=== PATIENT | female | born 1980 ===

== ENCOUNTER 2023-02-01 09:38 | Outpatient (REF) | payer MEDICAID, SELFPAY ==
[2023-02-01 14:17] LABS: MANUAL DIFF FLAG NO
[2023-02-01 14:19] LABS: Basophils Absolute Auto 0.1 X10*3/uL (0.0-0.2); Basophils Percent Auto 0.6 % (0-2); Eosinophils Absolute Auto 0.4 X10*3/uL (0.0-0.4); Eosinophils Percent Auto 4.5 % (0-4); Hematocrit 38.1 % (37.0-47.0); Hemoglobin 12.4 g/dl (12.0-16.0); Imm Gran Abs Auto 0.03 X10*3/uL (0.00-0.03); Imm Gran Pct Auto 0.3 % (0.0-0.4); Lymphocytes Percent Auto 23.6 % (20-40); Mean Corpuscular HGB Conc 32.5 g/dl (31.0-35.0); Mean Corpuscular Hemoglobin 32.5 pg (27.0-33.0); Mean Corpuscular Volume 99.7 fL (80.0-98.0); Mean Platelet Volume 10.5 fL (9.4-12.3); Monocytes Absolute Auto 0.6 X10*3/uL (0.1-1.2); Monocytes Percent Auto 7.4 % (2-11); Neutrophils Absolute Auto 5.5 x10*3/uL (2.0-8.3); Neutrophils Percent Auto 63.6 % (45-73); Platelet Count 370 X10*3/uL (160-400); Red Blood Count 3.82 X10*6/uL (4.20-5.50); White Blood Count 8.6 X10*3/uL (4.8-10.8)
[2023-02-01 14:39] LABS: Alanine Aminotransferase 10 U/L (0-31); Albumin Level 3.9 g/dL (3.5-5.0); Alkaline Phosphatase 69 U/L (39-117); Anion Gap 11 (12-20); Aspartate Amino Transferase 15 U/L (5-31); Bilirubin Direct 0.2 mg/dL (0.0-0.5); Bilirubin Total 0.3 mg/dL (0.0-1.0); Blood Urea Nitrogen 8 mg/dL (9-16); Calcium 9.4 mg/dL (8.4-10.2); Carbon Dioxide 23 mmol/L (22-29); Chloride 109 mmol/L (96-108); Cholesterol 141 mg/dL (<200); Estimated Glomerular Filt Rate > 60; Glucose Random 80 mg/dL (60-115); HDL Cholesterol 34 mg/dL (>40); LDL Cholesterol Calculated 96 mg/dL (<100); Potassium 3.8 mmol/L (3.3-5.1); Sodium 139 mmol/L (135-145); Total Protein 6.8 g/dL (6.5-8.0); Triglycerides 56 mg/dL (<150)
[2023-02-01 15:03] LABS: Vitamin B12 322 pg/mL (200-900)
== END 2023-02-01 09:39 | disposition home or self-care (01) ==
LOC: HO.CHCLDS 09:38
PROVIDERS: Visit Provider Pediatrics
DX: J45.20 Mild intermittent asthma, uncomplicated (principal); R63.4 Abnormal weight loss
CPT/HCPCS: 36415; 80048; 80061; 80076; 82607; 84443; 85025

== ENCOUNTER 2023-03-23 10:03 | Emergency (ER) | payer OTHER, MEDICAID, SELFPAY ==
--- NOTE | ~2023-03-23 | XR_ITS ---
EXAMINATION: XR HAND, RIGHT CLINICAL INFORMATION: Pain, injury. COMPARISON: None available. TECHNIQUE: PA, lateral, and oblique views of the right hand. FINDINGS: Bones, joints and soft tissues of the hand and wrist have a normal appearance. No evidence of arthritic deformity, fracture or subluxation. No focal soft tissue swelling or radiopaque foreign body. XR/XR hand RT 2V IMPRESSION: Normal right hand.
[2023-03-23 10:11] VITALS: BP 145/90; PULSE 84; RESP 20; TEMP 36.5; O2SAT 98; BMI 25.5
--- NOTE | 2023-03-23 11:12 | ED_ITS ---
HPI - General Adult General Chief complaint: Extremity Problem Stated complaint: R Hand Injury Work Related 03/23/23 Time Seen by Provider: 03/23/23 11:11 Source: patient Mode of arrival: ambulatory Limitations: no limitations History of Present Illness HPI narrative: Patient is a 43 year old assigned female at with no reported medical history presenting to the emergency department today with right thumb pain. 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 Patient denies any dizziness, lightheadedness, abdominal pain, nausea, vomiting, fever, chills, blurry vision, double vision, loss of vision, chest pain, difficulty breathing, shortness of breath, back pain, night sweats, pain with urination, increased urinary frequency, increased urinary urgency, blood in her urine or stool, syncope or a near syncopal episode, bowel incontinence, bladder incontinence, bowel retention, bladder retention, or any other complaints at this time. Onset (ago): minute(s) Location: right and upper extremity Radiation: non-radiation Severity: mild Severity scale (1-10): 3 Quality: aching and dull Pain Consistency: constant Relieving factors: none Exacerbating factors: none Associated symptoms: denies other symptoms Treatments prior to arrival: none Related Data Allergies Allergy/AdvReac Type Severity Reaction Status Date / Time No Known Allergies Allergy Verified 03/23/23 10:14 Review of Systems Constitutional: Constitutional: Reports no additional constitutional complaints, Denies chills, Denies fever(s) and Denies night sweats Eyes: Eyes: Reports no additional eye complaints, Denies blurry vision, Denies change in vision, Denies diplopia, Denies eye discharge, Denies loss of vision and Denies eye pain ENT: Denies dizziness Cardiovascular: Cardiovascular: Reports no additional cardiovascular complaints, Denies chest pain, Denies lightheadedness, Denies Loss of Consciousness and Denies dyspnea Respiratory: Respiratory: Reports no additional respiratory complaints and Denies dyspnea Gastrointestinal: Gastrointestinal: Reports no additional gastrointestinal complaints, Denies abdominal pain, Denies melena, Denies hematochezia, Denies change in bowel habits and Denies change in stool character Genitourinary: Genitourinary: Denies hematuria, Denies urinary frequency, Denies dysuria, Denies urinary incontinence, Denies urinary hesitancy and Denies urinary urgency Musculoskeletal: Musculoskeletal: Reports no additional musculoskeletal complaints, Denies numbness and Denies tingling Comments: right thumb pain Neurologic: Denies dizziness, Denies loss of vision, Denies numbness and Denies tingling Psychiatric: Psychiatric: Reports no additional psychiatric complaints Endocrine: Endocrine: Reports no additional endocrine complaints Hematologic/Lymphatic: Hematologic/Lymphatic: Reports no additional hematologic/lymphatic complaints Allergic/Immunologic: Allergic/Immunologic: Reports no additional allergic/immunologic complaints PMFSH Past Medical History Attestation statement: The following information was validated with the patient. Source: old records reviewed and nursing notes reviewed Social History Social History Advance Directives: No Advance Directives Information Provided: No Physical Exam ED Vital Signs: Vital Signs - 24 hr 03/23/23 10:11 Temperature 97.7 F Pulse Rate 84 Respiratory Rate 20 Blood Pressure 145/90 H Pulse Oximetry 98 Oxygen Delivery Method Room Air BMI result Body Mass Index 25.5 Const General: cooperative, no acute distress, alert and awake Nutritional Appearance: well nourished Orientation/consciousness: patient oriented x3 Limitations: no limitations HENMT Head: Yes normal to inspection and Yes atraumatic Ears: hearing grossly normal bilaterally and external ears normal General nose exam: Normal external nose present, no nasal discharge noted and no epistaxis Face and sinus: Yes normal facial exam, No abrasion and No laceration Mouth: Normal oral and palatal mucosa present, no drooling and no muffled voice Eyes General: appearance normal, both eyes and all related structures Periorbital: periorbital findings normal Eyelids: Yes eyelids normal Conjunctivae: conjunctivae normal Pupils: Equal, round and reactive pupils present EOM: EOMs intact bilaterally Neck Neck: Yes normal visual inspection, Yes full ROM and Yes no lymphadenopathy Chest Chest palpation & inspection: normal inspection of the chest Resp Effort & Inspection: normal respiratory effort and able to speak in complete sentences GI Inspection: Yes normal to inspection Neuro General: patient oriented x3 and moves all extremities Cranial nerves: Yes Equal, round and reactive pupils present Cognition (Neuro): normal cognition Motor exam (neuro): 5/5 motor strength present throughout Sensory Exam: Normal double simultaneous stimulation for sensation Coordination: [id number] test normal Extrem Other: unable to touch right thumb to right finger tips General: Yes normal to inspection and Yes capillary refill normal Psych Appearance: grossly normal Mental Status: mental status grossly normal Affect: normal affect Attitude: cooperative Thought process: Normal thought process present Thought content: Normal thought content present Insight: Good insight present (Psych) Procedures Orthopedic Splinting/Casting Injury #1: Side: right Upper Extremity Injury Location: hand and finger (thumb) Upper Extremity Immobilizer: thumb spica Medical Decision Making Medical Decision Making MDM Narrative: Patient is a 43 year old assigned female at with no reported medical history presenting to the emergency department today with right thumb and hand pain. Patient's physical exam showed that the patient is unable to touch her right thumb to her right finger tips. Patient's right hand x-ray showed no acute process. I explained my physical exam findings as well as all test results to the patient. I answered all questions asked by the patient. Patient's right thumb was placed in a thumb spica splint, without incident. Patient's PMS was intact prior to and after splint placement. I stressed the importance of the patient taking her medication as prescribed. I stressed the importance of the patient following up with her primary care provider and an orthopedic provider. I stressed the importance of the patient returning to the emergency department immediately if her symptoms were to worsen or if she were to develop any dizziness, shortness of breath, difficulty breathing, chest pain, blurry vision, loss of vision, nausea, vomiting, abdominal pain, fever, chills, back pain, or any other complaints. Patient verbalized agreement and understanding with this treatment plan and discharge. Differential Diagnosis Differential Diagnoses: The differential diagnosis associated with the presentation includes Right thumb sprain Right hand sprain Skier's thumb UCL of the thumb injury RCL of the thumb injury Independent Interpretation I performed an independent interpretation of an: Plain X-Ray Interpretation: My interpretation is in agreement with the radiologist's impression of this imaging study. EXAMINATION: XR HAND, RIGHT CLINICAL INFORMATION: Pain, injury. COMPARISON: None available. TECHNIQUE: PA, lateral, and oblique views of the right hand. FINDINGS: Bones, joints and soft tissues of the hand and wrist have a normal appearance. No evidence of arthritic deformity, fracture or subluxation. No focal soft tissue swelling or radiopaque foreign body. XR/XR hand RT 2V IMPRESSION: Normal right hand. Dictated By: Mian Tucker MD Signed By: Electronically signed by Mian Tucker MD 03/23/23 1926 Radiology Impression Discussion of test interpretation with radiology: I have reviewed the radiologist's reading. Discharge Plan Discharge Clinical Impression: Sprain of hand, thumb, right Patient Disposition: Home, Self-Care Instructions: Sprain (ED), Skier's Thumb (ED) Additional Instructions: Keep your splint on until you see the orthopedic provider. Follow up with your primary care provider and an orthopedic provider. Return to the emergency department immediately if your symptoms worsen or if you develop any dizziness, shortness of breath, difficulty breathing, chest pain, blurry vision, loss of vision, nausea, vomiting, abdominal pain, fever, chills, back pain, or any other complaints. Referrals: [facility] [place] [facility] [Provider Group] (Call to establish and follow up with an orthopedic provider.) [facility] [Provider Group] (Given this was a work place injury, call to establish and follow up with [facility].) Galina Farfan MD [Primary Care Provider] - Stand Alone Forms: Work/School Release Print Language: Zimbabwean
== END 2023-03-23 13:14 | disposition home or self-care (01) ==
PROVIDERS: Emergency Provider Emergency Medicine Emergency Medical Services; PCP Pediatrics
DX: S63.601A Unspecified sprain of right thumb, initial encounter (principal); M79.641 Pain in right hand; Y29.XXXA Contact with blunt object, undetermined intent, initial encounter; Y93.9 Activity, unspecified; Y92.9 Unspecified place or not applicable; Y99.0 Civilian activity done for income or pay
CPT/HCPCS: 73120; 99282; 99283

== ENCOUNTER 2023-03-26 10:42 | Outpatient (AMB) | payer OTHER, MEDICAID, SELFPAY ==
--- NOTE | 2023-03-26 10:44 | A.OFFVIS_ITS ---
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 Patient reports that she works as a [employer] and was caring for a patient when the patient rolled over on her hand causing her thumb to bend back. She was seen at [facility] ED same day where xrays were taken and placed in a wrist brace. Currently her pain comes with any movement, states at rest no pain. Her pain is located around her CMC and will radiate up into her forearm. States numbness and tingling in thumb. 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 She was seen at ED the same day where x-rays were performed and she was placed in a wrist brace. She currently she has pain and swelling at the CMC of her thumb which radiates up to her forearm. Her pain comes with any movement. She also c/o numbness and tingling in her thumb. She denies any popping s/p injury. 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 [facility] Social History (Updated 03/26/23 @ 10:51 by Lisette Villafuerte Xiomara) Patient Tobacco Use Status: Current everyday Tobacco user Current occupation: [employer], right hand dominant Review of Systems Const All systems reviewed & are unremarkable except as noted in HPI and below Physical Exam Vital Signs: BMI result Body Mass Index 25.5 Const General: cooperative, healthy appearing, comfortable, no acute distress, well developed and alert Orientation/consciousness: patient oriented x3 HEENT Head: Yes normal to inspection, Yes normocephalic and Yes atraumatic Eyes General: appearance normal, both eyes and all related structures Resp Effort & Inspection: normal respiratory effort and able to speak in complete sentences Cardio Rate: regular rate Peripheral pulses: Peripheral pulses 2+ throughout GI Palpation (GI): Soft to palpation Skin Lesions: no lesions Rashes: no rashes Neuro General: patient oriented x3 Extrem Other: Right thumb: Normal to inspection. She has significant tenderness along base of her thumb into the wrist. She has hypersensitivity to palpation over the distal radius into the forearm. No bony abnormality. I can bring her 2nd, 3rd, 4th, and 5th digit to a closed fist and extend digits fully. Sensation and pulses are present. Results Reviewed Results Reviewed: xrays of the right hand 03/23/23 of the right hand are negative for acute fractures or dislocations Assessment & Plan Assessment & Plan (1) Right wrist tendonitis: Code(s): M77.8 - Other enthesopathies, not elsewhere classified (2) Injury of triangular fibrocartilage complex (TFCC) of right wrist: Code(s): S69.81XA - Other specified injuries of right wrist, hand and finger(s), initial encounter Qualifiers: Encounter type: initial encounter Qualified Code(s): S69.81XA - Other specified injuries of right wrist, hand and finger(s), initial encounter Plan At this time, she is significantly guarded on exam making it difficult to perform any exam on her. I did send her a prescription of Tylenol and ibuprofen to her the pharmacy and I encouraged to pick this up right away so she can start taking this. She was also placed in a Velcro thumb spica wrist splint which she will wear for the next 2 weeks. She should also try to perform ROM exercises. She will return to work without the use of her right hand until I see her back. An STAT MRI arthrogram of the right wrist has been ordered for further evaluation. Orders: Orders MR wrist RT w con Today M77.8 - Other enthesopathies, not elsewhere classified, S69.81XA - Other specified injuries of right wrist, hand and finger(s), initial encounter Medications: New ibuprofen 800 mg PO Q8H PRN 90 tabs 3RF pain 30 days S52.209D - Unspecified fracture of shaft of unspecified ulna, subsequent encounter for closed fracture with routine healing acetaminophen 650 mg (2 x 325 mg) PO Q4-6H PRN 240 tabs 0RF fever or pain 30 days Patient Instructions: Scribed for Han Devlin PA-C, by William Elliott medical records clerk, on 03/26/2023 at 10:30 AM Han WARREN PA-C, have personally reviewed and agree with the information entered by the scribe. Coding Level of Care Code New Pt Level 3 (79876) Diagnoses Right wrist tendonitis M77.8 Injury of triangular fibrocartilage complex (TFCC) of right wrist, initial encounter S69.81XA Encounter type: initial encounter
[2023-03-26 10:52] VITALS: BMI 25.5
== END 2023-03-26 11:26 | disposition home or self-care (01) ==
PROVIDERS: PCP Pediatrics; Visit Provider Physician Assistant
DX: S69.81XA Other specified injuries of right wrist, hand and finger(s), initial encounter (principal); W51.XXXA Accidental striking against or bumped into by another person, initial encounter; Y99.0 Civilian activity done for income or pay; Z04.2 Encounter for examination and observation following work accident
CPT/HCPCS: 99203

== ENCOUNTER → 2023-03-26 10:42 | Outpatient (BNVA) | payer OTHER, MEDICAID, SELFPAY | PROVIDERS: PCP Pediatrics; Visit Provider Physician Assistant | DX: M77.8 Other enthesopathies, not elsewhere classified (principal); S69.81XA Other specified injuries of right wrist, hand and finger(s), initial encounter | CPT/HCPCS: 99202 ==

== ENCOUNTER 2023-04-24 10:34 | Outpatient (REF) | payer OTHER, SELFPAY ==
--- NOTE | ~2023-04-24 | MR_ITS ---
EXAMINATION: MR WRIST WITH CONTRAST, RIGHT CLINICAL INFORMATION: Right wrist injury, pain. COMPARISON: None available. TECHNIQUE: MRI of the wrist was performed following the intra-articular administration of a dilute gadolinium-containing solution (arthrogram) on a high-field scanner. FINDINGS: There is a full-thickness tear at the radial attachment of the triangular fibrocartilage complex with contrast extending into the distal radioulnar joint. The scapholunate and lunotriquetral ligaments appear intact. Mild degenerative changes of the triscaphoid articulation, at the dorsal junction of the trapezium and trapezoid and 2nd CMC joint, and a degenerative cyst within the proximal capitate. There is also a reactive cyst of the distal ulna at the fovea. No acute osseous abnormality. There is a 6 mm ganglion projecting distal to the volar aspect of the junction of the trapezium and trapezoid. The median nerve appears slightly enlarged and increased in signal immediately proximal to the carpal tunnel. Correlate clinically for symptoms of carpal tunnel syndrome. Flexor and extensor tendons appear intact. MR/MR wrist RT w con IMPRESSION: 1. Full-thickness tear at the radial attachment of the triangular fibrocartilage complex. 2. Mild degenerative changes as described. 3. The median nerve appears slightly enlarged and increased in signal immediately proximal to the carpal tunnel. Correlate clinically for symptoms of carpal tunnel syndrome.
--- NOTE | ~2023-04-24 | FL_ITS ---
RIGHT WRIST ARTHROGRAM INDICATIONS: Right wrist pain. Intra-articular gadolinium injection is needed prior to MRI. PROCEDURE: Risks and benefits and possible complications were discussed with the patient and the consent form was signed. The patient was placed prone on the fluoroscopy table. The right wrist was prepped and draped in normal sterile fashion. 1% buffered lidocaine was used for anesthesia. A 25-gauge hypodermic needle was used to access the radiocarpal joint. Intra-articular position of the needle within the radiocarpal joint was verified using 0.5 cc of Omnipaque 300. A total of 2 mL of gadolinium/saline (1:200) contrast mixture was then injected into the radiocarpal joint. The needle was then removed and a Band-Aid was applied to the injection site. The patient tolerated the procedure well and was sent for to MRI. There were no immediate complications. FL/FL arthrogram wrist RT IMPRESSION: Fluoroscopic right wrist arthrogram The procedure was performed by Christiano Wellington PA-C, and directly supervised by Dr. Flores.
[2023-04-26] MEDS: gadobutroL 2 ML VIAL IVPUSH (15:18)
== END 2023-04-24 10:35 | disposition home or self-care (01) ==
LOC: HO.XRAY 10:34
PROVIDERS: PCP Pediatrics; Visit Provider Physician Assistant
DX: S69.81XA Other specified injuries of right wrist, hand and finger(s), initial encounter (principal); M77.8 Other enthesopathies, not elsewhere classified
CPT/HCPCS: 25246; 73115; 73222; A9585

== ENCOUNTER → 2023-04-24 11:00 | Outpatient (BNV) | payer OTHER, SELFPAY | PROVIDERS: PCP Pediatrics; Visit Provider Radiology Diagnostic Radiology | DX: M25.531 Pain in right wrist (principal) | CPT/HCPCS: 25246; 73115 ==

== ENCOUNTER 2023-05-07 16:10 | Outpatient (REF) | payer SELFPAY ==
[2023-05-08 14:08] LABS: CT PCR NOT DETECTED (Not Detect.); NG PCR NOT DETECTED (Not Detect.)
[2023-05-09 13:12] LABS: BV Int Neg Control Negative (Negative); BV Int Pos Control Positive (Positive)
== END 2023-05-07 16:11 | disposition home or self-care (01) ==
LOC: HO.LNP 16:10
PROVIDERS: Emergency Medicine; Visit Provider Family Medicine
DX: Z20.2 Contact with and (suspected) exposure to infections with a predominantly sexual mode of transmission (principal)
CPT/HCPCS: 0353U; 87480; 87510; 87660

== ENCOUNTER 2023-05-11 11:28 | Outpatient (AMB) | payer OTHER, SELFPAY ==
[2023-05-11 11:31] VITALS: BMI 25.5
--- NOTE | 2023-05-11 11:31 | A.OFFVIS_ITS ---
Intake Vital Signs 05/11/23 11:31 Height 5 ft 1 in Weight 135 lb BMI 25.5 Intake Visit Reasons: OV-follow up right wrist MRI Intake Note: Zaina is a 43 year old Right handed female who presents for and MRI review of her Right wrist. Patient reports it is a little better, she wore the splint and states that it is restrictive and she has been doing ROM exercieses that have been helping along with warm compress and massage. Allergies No Known Allergies Allergy (Verified 05/11/23 11:34) HPI OV-follow up right wrist MRI HPI Details 43-year-old female who returns to the [facility] today for an MRI review of right wrist. She states she has mild improvement in her wrist. She is working with her exercises as well as warm compress and massage with benefits. She is wearing her splint as instructed however she states that it is restrictive. She has no other concerns today. 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 Review of Systems Const All systems reviewed & are unremarkable except as noted in HPI and below Physical Exam Vital Signs: BMI result Body Mass Index 25.5 Const General: cooperative, healthy appearing, comfortable, no acute distress, well developed and alert Orientation/consciousness: patient oriented x3 HEENT Head: Yes normal to inspection, Yes normocephalic and Yes atraumatic Eyes General: appearance normal, both eyes and all related structures Resp Effort & Inspection: normal respiratory effort and able to speak in complete sentences Cardio Rate: regular rate Peripheral pulses: Peripheral pulses 2+ throughout GI Palpation (GI): Soft to palpation Skin Lesions: no lesions Rashes: no rashes Neuro General: patient oriented x3 Extrem Other: Right thumb: Normal to inspection. She has significant tenderness along base of her thumb into the wrist, pain over the TFCC and pain with compression of the wrist. No bony abnormality. She can make a closed fist and extend digits fully. Sensation and pulses are present. Results Reviewed Results Reviewed: MR wrist RT w con IMPRESSION: 1. Full-thickness tear at the radial attachment of the triangular fibrocartilage complex. 2. Mild degenerative changes as described. 3. The median nerve appears slightly enlarged and increased in signal immediately proximal to the carpal tunnel. Correlate clinically for symptoms of carpal tunnel syndrome. Assessment & Plan Assessment & Plan (1) Right wrist tendonitis: Code(s): M77.8 - Other enthesopathies, not elsewhere classified (2) Injury of triangular fibrocartilage complex (TFCC) of right wrist: Code(s): S69.81XA - Other specified injuries of right wrist, hand and finger(s), initial encounter Qualifiers: Encounter type: initial encounter Qualified Code(s): S69.81XA - Other specified injuries of right wrist, hand and finger(s), initial encounter Plan MRI findings were discussed with the patient today. Given her continued limitations that she experiences from her injury I would like her to meet with Dr. Multani to discuss the MRI findings to evaluate if surgical intervention is warranted. She will return to work with no lifting, pushing, pulling or carrying with her right arm. She will see us back as planned. Patient Instructions: Scribed for Han Devlin PA-C, by William Elliott medical staff credentialing coordinator, on 05/11/2023 at 11:30 AM EMMA. Han Abdul PA-C, have personally reviewed and agree with the information entered by the scribe. Coding Level of Care Code Est Pt Level 3 (81092) Diagnoses Right wrist tendonitis M77.8 Injury of triangular fibrocartilage complex (TFCC) of right wrist, initial encounter S69.81XA Encounter type: initial encounter
== END 2023-05-11 12:09 | disposition home or self-care (01) ==
PROVIDERS: PCP Pediatrics; Visit Provider Physician Assistant
DX: M77.8 Other enthesopathies, not elsewhere classified (principal); S69.81XA Other specified injuries of right wrist, hand and finger(s), initial encounter
CPT/HCPCS: 99213

== ENCOUNTER → 2023-05-11 11:28 | Outpatient (BNVA) | payer OTHER, SELFPAY | PROVIDERS: PCP Pediatrics; Visit Provider Physician Assistant | DX: M77.8 Other enthesopathies, not elsewhere classified (principal); S69.81XA Other specified injuries of right wrist, hand and finger(s), initial encounter | CPT/HCPCS: 99212 ==

== ENCOUNTER 2023-08-22 15:23 | Outpatient (AMB) | payer OTHER, SELFPAY ==
[2023-08-22 15:31] VITALS: BMI 25.5
--- NOTE | 2023-08-22 15:31 | MHC.OFFVIS ---
Vital Signs 08/22/23 15:31 Height 5 ft 1 in Weight 135 lb BMI 25.5 Intake Visit Reasons: OV-Discuss MRI TFCC tear Intake Note: Zaina 43 yr old female presents today for her MRI review of her right hand. States her pain is worse. She is also now having pain in her left due to over use. Allergies No Known Allergies Allergy (Verified 08/22/23 15:32) HPI HPI OV-Discuss MRI TFCC tear: Details: Zaina Jensen is a 43 year old right hand dominant woman who returns for a review of a right wrist MRI for right wrist and hand pain. DOI: 03/2023. She reports while at work her right thumb bent backwards. She reports pain along the entire radial aspect of the right wrist and right thumb. Denies numbness or tingling. She has an MRI arthrogram done by Han Devlin PA-C, who referred her to me. 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 Review of Systems Const All systems reviewed & are unremarkable except as noted in HPI and below Physical Exam Vital Signs: BMI result Body Mass Index 25.5 Const General: cooperative, healthy appearing and no acute distress Orientation/consciousness: patient oriented x3 HEENT Head: Yes normocephalic and Yes atraumatic Eyes EOM: EOMs intact bilaterally Resp Effort & Inspection: normal respiratory effort and able to speak in complete sentences Cardio Jugular venous distension: no JVD Skin General skin exam: turgor normal Rashes: no rashes Neuro General: patient oriented x3 Extrem Other: Evaluation of Right Upper Extremity: Patient was alert oriented and in no acute distress She was somewhat anxious about me touching her right hand. The patient held her hand in a position of disuse, and explained that she had significant pain about the right thumb from about the MCP joint proximally to the radial aspect of the right wrist. With encouragement I can get her to bring her fingers into a fist and back into full extension. She was very resistant to move her right thumb at all. With encouragement I can get her to weakly demonstrate flexion and extension at the IP joint of the thumb She complained of pain with palpation about the MCP joint and with testing of the radial collateral and ulnar collateral ligaments. The radial and ulnar collateral ligaments appeared to both be stable on exam. I ended up using a 0-10 pain scale as pain on the radial aspect of the hand and wrist was nonfocal. She had 5/10 pain to the 1st dorsal compartment on the radial aspect of the wrist. She had 6/10 pain to light touch only of the skin over the thenar mass and explained that this was her area of maximal tenderness. Again this was only with light touch of the skin. Nontender over the index middle ring and small fingers. Nontender over the 2nd 3rd 4th and 5th metacarpals, though she did complain of ?pressure? She was completely nontender about the ulnocarpal joint. The DRUJ was nontender and was completely stable on exam. Radiographs: Three views of the right hand were reviewed by me today in clinic and showed no fractures or dislocations. MRI arthrogram: MRI of the right wrist, obtained on 04/24/2023: IMPRESSION: 1. Full-thickness tear at the radial attachment of the triangular fibrocartilage complex. 2. Mild degenerative changes as described. 3. The median nerve appears slightly enlarged and increased in signal immediately proximal to the carpal tunnel. Correlate clinically for symptoms of carpal tunnel syndrome. Dictated By: Kennedy Miller MD on 04/24/23 [id number] Assessment & Plan Assessment & Plan (1) Right wrist pain: Code(s): M25.531 - Pain in right wrist Category: Medical (2) Pain of right thumb: Code(s): M79.644 - Pain in right finger(s) Category: Medical (3) Hypersensitivity: Code(s): T78.40XA - Allergy, unspecified, initial encounter Category: Medical Plan Assessment and plan: 1. Right radial wrist pain 2. Right thumb pain 3. Hypersensitivity to light touch of the thumb and radial wrist. This is all related to a work-related injury as a [employer]ER in March of 2023. She has been unable to work since that time. Radiographs and MRI are negative for any fracture. There is a possible degenerative TFCC tear from the radial attachment, which is completely asymptomatic. MRI negative for ligamentous injury of the wrist itself other than as noted above. Please see the report for additional information as necessary. At this point I am more concerned about her disuse and hypersensitivity. I encouraged her to work on range of motion exercises and referring her for OT hand therapy. We will see her back in 1 month for reassessment. It is possible that she may have an underlying de Quervain tenosynovitis, and we can address treatment of that at that time as symptoms and exam hopefully become more focal.. Orders: Orders OT Evaluation and Treatment Today M25.531 - Pain in right wrist, M79.644 - Pain in right finger(s), T78.40XA - Allergy, unspecified, initial encounter Patient Instructions: Scribed by Mirian Ventura, medical officer psychiatry, for Dr. Venita Multani on 08/22/2023 at 3:38 pm, EST. Coding Level of Care Code New Pt Level 4 (91455) Diagnoses Right wrist pain M25.531 Pain of right thumb M79.644 Hypersensitivity T78.40XA
== END 2023-08-22 16:06 | disposition home or self-care (01) ==
LOC: HO.HOS 15:23
PROVIDERS: PCP Pediatrics; Visit Provider Orthopaedic Surgery
DX: M25.531 Pain in right wrist (principal); M79.644 Pain in right finger(s); T78.40XA Allergy, unspecified, initial encounter
CPT/HCPCS: 99203

== ENCOUNTER → 2023-08-22 15:23 | Outpatient (BNVA) | payer OTHER, SELFPAY | PROVIDERS: PCP Pediatrics; Visit Provider Orthopaedic Surgery | DX: M25.531 Pain in right wrist (principal); M79.644 Pain in right finger(s); T78.40XA Allergy, unspecified, initial encounter | CPT/HCPCS: 99202 ==

== ENCOUNTER 2023-09-10 08:30 | Outpatient (RCR) | payer OTHER, SELFPAY ==
--- NOTE | 2023-09-06 14:12 | MHC.OT.EP ---
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 when the LIGHT INDUSTRIAL who was assisting her did not perform the transfer correctly and the pt. rolled over onto her R hand/thumb. Pt has been out work since (DOI). She is wearing a thumb Spica (short wrist) orthoses given to her by the MD after d/charging her from a longer thumb Spica orthoses at her last MD appt. She has been referred to skilled OT therapy for increased functional use of her R hand/wrist Pt reports an MRI and X-ray in April : MRI showed tear of TFCC, A cyst, and median nerve involvement w/ possible DeQuervains Frequency and Duration: The patient will be seen Short Term Goals: Pt will be compliant w/ her HEP Pt will increase pain free wrist extension to 25 Pt will make a composite fist Pt will report using her R hand for showering tasks Hospice/Home Health Aide Goals: Pt will report a decrease of pain w/ AROM of her wrist tp1/10 Pt will oppose the distal tip of her R thumb to the base of her SF Pt will increase pain free wrist flexion to 50 Treatment Plan: Therapeutic Exercise Therapeutic Activity Home Exercise Program Splinting Neuro Re-ed Patient Education Desensitization/Sensory Re-ed Edema Control ADL Training Ultrasound NMES Iontophoresis Paraffin Fluidotherapy MHP Cold Packs Joint Mobilization Soft Tissue Mobilization Kinesiotaping Other (see comments) Pt is hypersensitive to pain Electronically Signed By: Samantha Pimentel OTR/L , Please Sign and return to therapist. Thank you once again for your referral.
--- NOTE | 2023-09-06 14:25 | MHC.OT.EP ---
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 when the LOCKSTITCH WAISTBAND SETTER who was assisting her did not perform the transfer correctly and the pt. rolled over onto her R hand/thumb. Pt has been out work since (DOI). She is wearing a thumb Spica (short wrist) orthoses given to her by the MD after d/charging her from a longer thumb Spica orthoses at her last MD appt. She has been referred to skilled OT therapy for increased functional use of her R hand/wrist Pt reports an MRI and X-ray in April : MRI showed tear of TFCC, A cyst, and median nerve involvement w/ possible DeQuervains Frequency and Duration: The patient will be seen 2xs a week for 8 weeks Short Term Goals: Pt will be compliant w/ her HEP Pt will increase pain free wrist extension to 25 Pt will make a composite fist Pt will report using her R hand for showering tasks Kiln Maintenance Goals: Pt will report a decrease of pain w/ AROM of her wrist tp1/10 Pt will oppose the distal tip of her R thumb to the base of her SF Pt will increase pain free wrist flexion to 50 Treatment Plan: Therapeutic Exercise Therapeutic Activity Home Exercise Program Splinting Neuro Re-ed Patient Education Desensitization/Sensory Re-ed Edema Control ADL Training Ultrasound NMES Iontophoresis Paraffin Fluidotherapy MHP Cold Packs Joint Mobilization Soft Tissue Mobilization Kinesiotaping Other (see comments) Pt is hypersensitive to pain Electronically Signed By: Samantha Pimentel OTR/L , Please Sign and return to therapist. Thank you once again for your referral.
--- NOTE | 2023-09-11 09:05 | MHC.OT.EP ---
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 when the HEALTH PLAN SPECIALIST who was assisting her did not perform the transfer correctly and the pt. rolled over onto her R hand/thumb. Pt has been out work since (DOI). She is wearing a thumb Spica (short wrist) orthoses given to her by the MD after d/charging her from a longer thumb Spica orthoses at her last MD appt. She has been referred to skilled OT therapy for increased functional use of her R hand/wrist Pt reports an MRI and X-ray in April : MRI showed tear of TFCC, A cyst, and median nerve involvement w/ possible DeQuervains Frequency and Duration: The patient will be seen 2 xs a week for 8 weeks Short Term Goals: Pt will be compliant w/ her HEP Pt will increase pain free wrist extension to 25 Pt will make a composite fist Pt will report using her R hand for showering tasks General Magistrate Goals: Pt will report a decrease of pain w/ AROM of her wrist tp1/10 Pt will oppose the distal tip of her R thumb to the base of her SF Pt will increase pain free wrist flexion to 50 Treatment Plan: Therapeutic Exercise Therapeutic Activity Home Exercise Program Splinting Neuro Re-ed Patient Education Desensitization/Sensory Re-ed Edema Control ADL Training Ultrasound NMES Iontophoresis Paraffin Fluidotherapy MHP Cold Packs Joint Mobilization Soft Tissue Mobilization Kinesiotaping Other (see comments) Pt is hypersensitive to pain Electronically Signed By: Samantha Pimentel OTR/L , Please Sign and return to therapist. Thank you once again for your referral.
--- NOTE | 2023-09-20 09:37 | MHC.OT.DC ---
[address] [phone] F: [phone] Occupational Therapy Discharge Note Patient Name: Zaina Jensen Provider: Venita Multani Diagnosis: R wrist pain , pain of R thumb Date of Surgery: Date of Evaluation: 09/06/23 Date of Discharge: Treatments to Date: 2 Cancellations to Date: No Shows to Date: 3 Discharge Status: Discharge Summary: Pt had 3 consecutive No shows to therapy. She had IE, and 1 tx which she attended and reported an increase of pain from AROM. She was unable to tolerate therapy. Electronically Signed By: Samantha Pimentel OTR/L , Reviewed/agree with student documentation: N/A Therapist: Please Sign and return to therapist, thank you for your referral.
== END 2023-09-21 15:00 | disposition home or self-care (01) ==
LOC: HO.OT 08:30
PROVIDERS: PCP Pediatrics; Visit Provider Orthopaedic Surgery
DX: M79.644 Pain in right finger(s) (principal); M25.531 Pain in right wrist; T78.40XD Allergy, unspecified, subsequent encounter
CPT/HCPCS: 97110; 97140; 97166; 97535

== ENCOUNTER 2023-09-12 09:07 | Emergency (ER) | payer OTHER, MEDICAID, SELFPAY ==
[2023-09-12 09:10] VITALS: BP 135/92; PULSE 86; RESP 16; TEMP 36.6; O2SAT 100; BMI 26.3
--- NOTE | 2023-09-12 09:49 | ED.EXTPRO ---
HPI - Extremity Problem General Chief complaint: Extremity Problem Stated complaint: wrist pain Time Seen by Provider: 09/12/23 09:31 History of Present Illness ED Provider: Galo Chapa PA-C HPI Narrative: 43 yo female pmh of right wrist tendonitis, injury of TFCC of right wrist presents with increasing pain to right hand/wrist status post work injury in March. 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 She reports she began PT last week but the pain was too much . She then reports she had to see someone from [facility] to evaluate her ROM which exacerbated the pain. Patient states she experiences tingling in her hand that comes and goes and sometimes radiates to her wrist She reports anxiety and insomnia because she is fearful of rolling on her wrist in her sleep. Patient was told to wear her brace and keep it on by PT and she is wearing it to the right wrist at time of examination. States she does not want to take it off as she is in too much pain. Denies numbness, weakness, fever, chills, chest pain, SOB. Patient states she is right hand dominant. Related Data Previous Rx's ?Medication ?Instructions ?Recorded acetaminophen 325 mg tablet 650 mg (2 x 325 mg) PO Q4-6H PRN 03/26/23 fever or pain 30 days #240 tabs ibuprofen 800 mg tablet 800 mg PO Q8H PRN pain 30 days #90 03/26/23 tabs ketorolac 10 mg tablet 10 mg PO TID PRN pain 5 days #15 09/12/23 tabs Allergies Allergy/AdvReac Type Severity Reaction Status Date / Time No Known Allergies Allergy Verified 09/12/23 09:13 Review of Systems Review of Systems: Yes all other systems are reviewed and are negative PMFSH Past Medical History Attestation statement: The following information was validated with the patient. 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 Appearance: Alert.? Oriented X3.? No acute distress.? Head: Normocephalic, atraumatic, no step-offs or deformities Neck: Normal inspection.? Neck supple.? CVS: Normal heart rate and rhythm.? Pulses normal.? Respiratory: No respiratory distress.? Breath sounds normal.? Abdomen: Soft and nontender.? Skin: Skin warm and dry.? Normal skin color.? Normal skin turgor.? Extremities: Removed brace to right wrist. Patient refusing to move wrist secondary to pain. Radial, ulnar, brachial pulses 2+ equal and symmetric bilaterally. No wrist drop b/l. Normal sensaiton distally Back: No midline tenderness, no C-spine tenderness, full range of motion, no CVA tenderness bilaterally Neuro: Oriented X 3.? No motor deficit.? No sensory deficit. CN 2-12 intact Course Reevaluation(s) Reevaluation #1: Patient will be given Toradol for pain she is supposed to see the specialist on the 12th of this month. Advised her to follow up with them. Educated patient on diagnosis and treatment plan, answered all question, patient verbalizes understanding. At this time patient will be discharged home, advised to return with new or worsening symptoms. Educated on worrisome signs and symptoms and when to return. At this time I feel comfortable discharge home. Time: 10:33 Medical Decision Making Medical Decision Making [facility] Narrative: 0945 43 yo female pmh right wrist tendonitis and injury to TFCC of right wrist presents for pain management status post work injury to her right wrist in March. Has seen orthopedic surgeon and PT. PE: Extremities: Removed brace to right wrist. Patient refusing to move wrist secondary to pain. Radial, ulnar, brachial pulses 2+ equal and symmetric bilaterally. Differential: Pain exacerbation from TFCC injury to right wrist. Unlikely threat to limb, fracture or dislocation, compartment syndrome, necrotizing infection, nerve injury, arterial or venous occlusion Plan: Pain control Differential Diagnosis Differential Diagnoses: The differential diagnosis associated with the presentation includes Differential: Pain exacerbation from TFCC injury to right wrist. Unlikely threat to limb, fracture or dislocation, compartment syndrome, necrotizing infection, nerve injury, arterial or venous occlusion Admission/Observation Consideration of admission/observation: Escalation of care including admission/observation considered (Unlikely) Independent Interpretation Interpretation: Reviewed wrist MRI from 04/24/2023 and wrist arthrogram on 04/24/2023. She also had an x-ray of the right hand on 03/23/2023 that was also reviewed Radiology Impression Discussion of test interpretation with radiology: I have reviewed the radiologist's reading. (from previous imaging as stated above ) External Record Review External record reviewed: Inpatient record, Office record, Outpatient record, Prior outpatient labs, Prior outpatient radiology, Primary care record and Outside ED record Prescription Management I considered prescription management with: Pain Medication (toradol ) Chronic Conditions Patient?s care impacted by: Other (R wrist pain ) Critical Care Time Critical Care Time Critical Care Time: Yes Total Critical Care Time: 35 Attestation: Insert critical care Discharge Plan Discharge Clinical Impression: Right wrist tendonitis Patient Disposition: Home, Self-Care Additional Instructions: Take your medications as prescribed. If you were prescribed antibiotics today, it is important that you take your medication to their entirety, do not skip any doses, do not finish them early. Follow-up with your primary care provider this week. Return to the emergency department with new or worsening symptoms. Such as fevers, chills, chest pain, shortness of breath, nausea, vomiting, dizziness, headache, vision changes, lethargy In case of emergency call 911 Toradol has been sent to your pharmacy, you tolerated this well in the department. Please take this as prescribed do not take this with ibuprofen, or other NSAIDs, do not mix this with alcohol. Side effects of this medication including increased risk for bleeding and possible kidney injury. Prescriptions: New ketorolac 10 mg tablet 10 mg PO TID PRN (Reason: pain) 5 Days Qty: 15 0RF No Action ibuprofen 800 mg tablet 800 mg PO Q8H PRN (Reason: pain) 30 Days Qty: 90 3RF acetaminophen 325 mg tablet 650 mg PO Q4-6H PRN (Reason: fever or pain) 30 Days Qty: 240 0RF Referrals: Galina Farfan MD [Primary Care Provider] - 2 days Stand Alone Forms: Work/School Release Print Language: Lithuanian
[2023-09-12] MEDS: Ketorolac Tromethamine 30 MG/ML VIAL IM (10:52)
[2023-09-12 10:57] VITALS: BP 135/92; PULSE 86; RESP 16; TEMP 36.6; O2SAT 100
== END 2023-09-12 10:58 | disposition home or self-care (01) ==
PROVIDERS: Emergency Provider Emergency Medicine; PCP Pediatrics
DX: M25.531 Pain in right wrist (principal); M77.8 Other enthesopathies, not elsewhere classified
CPT/HCPCS: 96372; 99283; 99284; J1885

== ENCOUNTER 2023-09-19 12:35 | Outpatient (AMB) | payer OTHER, SELFPAY ==
--- NOTE | 2023-09-19 12:55 | A.OFFVIS_ITS ---
Vital Signs 09/19/23 13:03 Height 5 ft 1 in Weight 139 lb BMI 26.3 Handedness Right Intake Visit Reasons: OV - right radial wrist pain Intake Note: Zaina is a 43 year old right hand dominant female who presents today for a follow up of Right TFCC tear, s/p OT. Patient states she hasn't seen improvements with OT she states there a was a hand surgeon there that moved her hand in way that made her pain so much worse. 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 I then had to convince her to not grasp & support her right wrist with her left hand As she had told me that a male orthopedic surgeon whom she had seen I believe as part of an insurance evaluation reportedly forced her hand through painful range of motion, I was careful to sit back and verbally retail performance coach her through attempted ranges of motion. With significant encouragement, and without touching her hand, I had her actively bring all of her fingers closed to a fist and back into full extension. She did this about 7 times, taking probably more than 15 minutes to do so. On the 7th iteration she still needed significant encouragement while also slowly bring her fingers closed to a fist and then needing encouragement again to fully extend her fingers, all while crying. She did not have stiffness in her fingers. I tried to get her to show me some wrist pronation and supination, but the most she could demonstrate was ~10 degrees of wrist pronation & 10 degrees of supination while crying. At the beginning of the appointment, while she still had her wrist splint on, I recall her using her right hand with a fair amount of ease as she handled her cell phone. She refused to flex or extend her wrist today. Her hesitation and resistance to try and move her hand or wrist appeared to be primarily be limited by fear & apprehension. She did talk about having pain over the dorsal aspect of her wrist and forearm when she was working on finger range of motion. When asked to localize where she had the most pain with 1 fingertip, she placed her index finger on the radial aspect of her right wrist, over the radial styloid. When asked to demonstrate ulnar deviation, she was unable to do so due to pain. It is difficult to tell if she has a positive Flory test today due to how limited our exam was today, and appeared to be limited by fear and effort. She has no swelling about the wrist or hand. She reported that she had some numbness and tingling in her fingertips. No intrinsic or thenar wasting. MRI arthrogram: IMPRESSION: 1. Full-thickness tear at the radial attachment of the triangular fibrocartilage complex. 2. Mild degenerative changes as described. 3. The median nerve appears slightly enlarged and increased in signal immediately proximal to the carpal tunnel. Correlate clinically for symptoms of carpal tunnel syndrome. Dictated By: Kennedy Miller MD 04/24/23 Psych Appearance: grossly normal Affect: normal affect Attitude: cooperative Office Procedures Fracture Care Details: No fracture, manual therapy for greater than 30 minutes 90227 x 2 Fracture Billing Code: Fracture Billing Code Assessment & Plan Assessment & Plan (1) Right wrist pain: Code(s): M25.531 - Pain in right wrist Category: Medical (2) Pain of right thumb: Code(s): M79.644 - Pain in right finger(s) Category: Medical (3) Hypersensitivity: Code(s): T78.40XA - Allergy, unspecified, initial encounter Category: Medical Plan Assessment and plan: 1. Right radial wrist pain This was the most significant finding on her exam from 08/22/2023, and where she placed her finger today when asked to identify the place that hurts her the most. Perhaps a de Quervain tenosynovitis, though it is impossible to tell on today's very limited exam 2. Apprehension, and perhaps fear of pain, when asked to bring even her fingertips through gentle range of motion, and her wrist through prono- supination, none of which was limited by the Velcro wrist splint that she was wearing. Patient reliance on wearing a Velcro thumb spica splint at all times, and when asked to remove it then using her opposite hand to grasp around her right wrist and support until reminded by me that nothing was actually broken or in need of such support, and being asked by me to stop doing so. 3. Hypersensitivity to light touch of the thumb and radial wrist. 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 She has reported that she has been unable to work since that time. 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 The DRUJ was found to be stable on previous exam. MRI negative for ligamentous injury of the wrist itself other than as noted above. No increased signal seen about the 1st dorsal compartment tendons. Please see the report for additional information as necessary. Her pain & hypersensitivity seems to be primarily related to disuse, and she had no stiffness today on exam Her ROM appeared to be limited by fear & pain and perhaps effort today It is possible she may have De Quervain's Tenosynovitis but it was too difficult to tell on exam today She became tearful when working on ROM exercises today in clinic, and we worked on ROM exercises for >30 minutes today with me verbally coaching her through making a fist and extending fingers, trying to get her to demonstrate some pronation and supination of the wrist, etc. as noted in the exam. I recommend she discontinue her wrist splint at this time She has been seen by OT twice, noting that she had a family emergency and other reasons to miss her last few appointments. She said that she is scheduled to see OT tomorrow. She says that they only gave her a few exercises to work on finger range of motion. I explained to her that it took us more than 15 minutes to get her through about 7 episodes of making a fist and extending her digits today in clinic. I recommended that she practice these exercises for a few minutes every hour, so that her time with the occupational therapist can be better spent. She will continue to work on ROM and desensitization with OT hand therapy I explained that she should work on ROM exercises including finger range of motion, wrist prono-supination, wrist flexion extension, at home, 20x daily, as it appears that most of her limitations right now are self-imposed. I spent a long time discussing the importance of performing ROM exercises at home. Her resuming more normal generalized range of motion will then allow either me or another hand surgeon to better evaluate her to see if she might have a particular problem that might benefit from perhaps a steroid injection or other intervention. Her current limitations in active attempts at range of motion do not allow for this to happen. I also told her that she was free to seek a second opinion if she desires She will follow up in 4-6 weeks for a ROM check If she does not show significant improvement in being able to better actively participate in the examination, or actively participate in OT hand therapy, I may recommend that she seek another opinion. Please note that greater than 60 minutes was spent with this patient going over the history, evaluating the patient, MRI and radiographs, formulating possible treatment options, discussing them with the patient, and documenting the visit. Scribed for Venita Multani MD by Zach Ramirez, medical chemist, on 09/19/23 at 1:35 PM, EST. Coding Level of Care Code Est Pt Level 4 (23668) Diagnoses Right wrist pain M25.531 Pain of right thumb M79.644 Hypersensitivity T78.40XA CPT Codes Fracture Care - Fracture Billing Code: Fracture Billing Code ([id number])
[2023-09-19 13:03] VITALS: BMI 26.3
== END 2023-09-19 13:59 | disposition home or self-care (01) ==
PROVIDERS: PCP Pediatrics; Visit Provider Orthopaedic Surgery
DX: M25.531 Pain in right wrist (principal); M79.644 Pain in right finger(s); T78.40XA Allergy, unspecified, initial encounter
CPT/HCPCS: 97140; 99215

== ENCOUNTER → 2023-09-19 12:35 | Outpatient (BNVA) | payer OTHER, SELFPAY | PROVIDERS: PCP Pediatrics; Visit Provider Orthopaedic Surgery | DX: M25.531 Pain in right wrist (principal); M79.644 Pain in right finger(s); T78.40XA Allergy, unspecified, initial encounter | CPT/HCPCS: 97140; 99212 ==

== ENCOUNTER 2023-10-05 10:41 | Outpatient (REF) | payer MEDICAID, SELFPAY ==
[2023-10-05 12:08] LABS: Syphilis Screen Nonreactive (Nonreactive)
[2023-10-05 15:48] LABS: HIV AB/AG Nonreactive (Nonreactive); HIV Num 1 0.05 S/CO (0.00-0.99); ~HepC Num1 0.07 S/CO (0.00-0.79); ~Hepatitis C Antibody Nonreactive (Nonreactive)
[2023-10-05 16:55] LABS: CT PCR NOT DETECTED (Not Detect.); NG PCR NOT DETECTED (Not Detect.)
== END 2023-10-05 10:42 | disposition home or self-care (01) ==
LOC: HO.HHCL 10:41
PROVIDERS: Visit Provider Family Medicine
DX: Z20.2 Contact with and (suspected) exposure to infections with a predominantly sexual mode of transmission (principal)
CPT/HCPCS: 36415; 86780; 86803; 87389; 87491; 87591

== ENCOUNTER 2023-10-05 13:57 | Outpatient (REF) | payer OTHER, SELFPAY | END 2023-10-05 13:58 | disposition home or self-care (01) | LOC: HO.LNP 13:57 | PROVIDERS: Visit Provider Family Medicine | DX: Z13.89 Encounter for screening for other disorder (principal) ==

== ENCOUNTER 2023-10-24 13:02 | Outpatient (RCR) | payer OTHER, MEDICAID, SELFPAY ==
--- NOTE | 2023-10-24 14:27 | MHC.OT.EP ---
[address] [phone] Occupational Therapy Plan of Care Patient Name: Zaina Wade Date of Evaluation: 10/24/23 Diagnosis: R WRIST AND THUMB PAIN Pain Location: R RADIAL WRIST, 1DI 4-5/10 AT REST 9/10 WITH HOLDING ITEMS Pain Score: 4-9/10 Pain Scale Used: Numeric (0 - 10) Aggravating Factors: CARRYING, LIFTING ITEMS IN R HAND Alleviating Factors: PAIN MEDICATION, HEAT Assessment: MS WADE REPORTS A R WRIST INJURY 8 MONTHS AGO. SHE C/O PAIN IN THE RADIAL ASPECT OF HER DOMINANT R WRIST. DIFFICULTIES REPORTED WITH ADLs AND IADLs, INCLUDING BATHING AND DRESSING SELF. USING COMPENSATORY STRATEGIES TO UTILIZE L HAND, MOSTLY AVOIDING R HAND USE. SHE RETURNS TO OT WITH GOAL TO HOLD ONTO/ CARRY ITEMS. AN 89% LIMITATION IS REPORTED PER THE QUICK DASH ASSESSMENT. WILL CONT SKILLED OT TO ADDRESS ROM, DESENSITIZATION, ENCOURAGE FUNCTIONAL USE/ ADLs, STRENGTH, AND COORDINATION. 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 Thank you once again for your referral.
--- NOTE | 2023-10-29 11:01 | MHC.OT.DC ---
[address] [phone] F: [phone] Occupational Therapy Discharge Note Patient Name: Zaina Wade Provider: Venita Multani Diagnosis: R WRIST AND THUMB PAIN Date of Evaluation: 10/24/23 Date of Discharge: 10/29/23 Treatments to Date: 1 Cancellations to Date: 0 No Shows to Date: 2 Discharge Status: Visit Non-compliance Discharge Summary: MS WADE PRESENTED TO OT FOR HER INITIAL EVAL. SHE REPORTED AN 89% LIMITATION PER THE QUICK DASH ASSESSMENT WITH A GOAL TO FUNCTIONALLY USE HER DOMINANT HAND. UNFORTUNATELY, AFTER HER INITAL VISIT SHE DID NOT RETURN TO OT FOR FOLLOW UP SESSIONS. PER THE CORE ATTENDANCE POLICY, Pt WILL BE DISCHARGED DUE TO VISIT NON COMPLIANCE. * OF NOTE, THIS IS HER SECOND TIME BEING DISCHARGED FROM CORE THERAPY DUE TO NON COMPLIANCE/ NO SHOWS. Electronically Signed By: RAMON LINN OTR/L Reviewed/agree with student documentation: N/A Therapist: Please Sign and return to therapist, thank you for your referral.
== END 2023-10-29 11:00 | disposition home or self-care (01) ==
LOC: HO.OT 13:02
PROVIDERS: PCP Pediatrics; Visit Provider Orthopaedic Surgery
DX: M25.531 Pain in right wrist (principal); M79.644 Pain in right finger(s); T78.40XA Allergy, unspecified, initial encounter
CPT/HCPCS: 97033; 97167

== ENCOUNTER 2024-01-02 08:40 | Outpatient (AMB) | payer OTHER, MEDICAID, SELFPAY ==
--- NOTE | 2024-01-02 08:40 | A.OFFVIS_ITS ---
Vital Signs 01/02/24 08:41 Height 5 ft 1 in Weight 139 lb BMI 26.3 Intake Visit Reasons: OV- Right wrist pain, RT TFCC tear, DOI 03/23/23 Intake Note: Zaina is a 43 year old right hand dominant female who presents today for a ROM check of right TFCC tear, DOI 03/23/23, that occurred at work. Patient reports she has not returned to work. She reports her employer stated she needs to be able to lift over 50 pounds. Patient expressed she is unable to do some regular daily activities like combing her hair or putting her hair up. She states her children have been helping her. She also shares she is unable to zip or buckle clothing. She continues to go to OT and wear a comfort cool brace. Allergies No Known Allergies Allergy (Verified 01/02/24 08:41) HPI HPI OV- Right wrist pain, RT TFCC tear, DOI 03/23/23: Details: Zaina Jensen is a 43 year old right hand dominant woman who returns for follow- up of her right radial wrist pain. DOI: 03/2023. Today her chief complaint is of pain over the dorsal aspect of her right hand demonstrating this over the dorsal aspect of the 4th metacarpal. She denies numbness and tingling. She says that she has been going to OT hand therapy, and it looks like she has been to 3 sessions since her last visit. She says that she can not do anything with her right hand and has to have her children fix her hair and help with things like zippers. 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 She was 1st seen by Rocio on 03/26/2023 and was sent for an MRI. She was seen back with Han on 05/11/2023 with the MRI findings, and was scheduled with an appointment to see me to review the MRI and evaluate the patient. She did not see me until 08/22/2023. At that time the MRI was reviewed and she was found to have right radial sided wrist and thumb pain but with hypersensitivity to even light touch of the skin. She was referred to OT hand therapy. She did not have a symptomatic TFCC tear but I was concerned about possible de Quervain tenosynovitis at that time. She was seen back again by me on 09/19/2023. At that time she was found to not be participating well with the exam and indeed took more than 15 minutes to demonstrate that she can actually make a fist and extend her finger 7 times, which I allowed her to do without touching her. Again referred her to OT as she had not been participating as we requested. After that I had several notes from OT where she fail to show and was discontinued from OT. We consequently reordered several times and again she would sharp to perhaps 1 appointment and then no-show. I made sure to put in the chart that we were not keeping her from working and had no restrictions on her with regards to working. She has had multiple courses of OT hand therapy ordered and has been very non- compliant overall with attending OT hand therapy sessions over the last several months. She states she has been attending OT recently and continues wearing a comfort cool brace. She says she is frustrated by her inability to work, and she is accustomed to a certain lifestyle and higher income , and it has been difficult to be out of work for so long. She denies supervisor receiving and processing's comp pay over the last few months, and says she has recently applied for financial aide. 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 She has been out of work since her injury and says her employer requires her to be able to lift 50lbs before she can return to work. She does say she tried to return and was told she could not due to her current restrictions. Of note her nails appear to have been done sometime recently. 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 As she had told me on a previous visit that a male orthopedic surgeon whom she had seen I believe as part of an insurance evaluation reportedly forced her hand through painful range of motion, I was careful to sit back and verbally track coach her through attempted ranges of motion. Median, Ulnar, Radial nerves motor and sensory intact and sensation is normal to the tips of all digits No thenar or intrinsic wasting Good APB muscle belly firing and good finger cross With encouragement, she is able to make a fist and extend all her digits Full & symmetrical wrist pronosupination Full & symmetrical wrist flexion & extension, with encouragement She has no swelling or erythema about the wrist or hand. She demonstrates today that her pain is centered over the 4th metacarpal over the dorsal aspect of her hand. She says she has more pain in this area when she makes a fist or supinates. She did not mention any pain on the radial side of her wrist or hand today.. Radiographs: 3 views of the right wrist from 03/23/23 show no fractures, dislocations, or arthritic changes. MRI arthrogram: IMPRESSION: 1. Full-thickness tear at the radial attachment of the triangular fibrocartilage complex. 2. Mild degenerative changes as described. 3. The median nerve appears slightly enlarged and increased in signal immediately proximal to the carpal tunnel. Correlate clinically for symptoms of carpal tunnel syndrome. Dictated By: Kennedy Miller MD 04/24/23 Psych Appearance: grossly normal Affect: normal affect Attitude: cooperative Assessment & Plan Assessment & Plan (1) Right hand pain: Code(s): M79.641 - Pain in right hand Category: Medical (2) Right wrist pain: Code(s): M25.531 - Pain in right wrist Category: Medical (3) Pain of right thumb: Code(s): M79.644 - Pain in right finger(s) Category: Medical (4) Hypersensitivity: Code(s): T78.40XA - Allergy, unspecified, initial encounter Category: Medical Plan Assessment and plan: 1. Right dorsal ulnar hand pain This is a new complaint today. No swelling, good range of motion. 2. Right radial wrist pain Area of previous complaint of pain. No complaints of right radial wrist pain today. Instead her new localization of discomfort appears to be centered over the dorsal aspect of the 4th metacarpal. This is a new location of pain that has not been mentioned previously. 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 She has reported that she has been unable to work since that time. 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 The DRUJ was found to be stable on previous exam. MRI negative for ligamentous injury of the wrist itself other than as noted above. No increased signal seen about the 1st dorsal compartment tendons. Please see the report for additional information as necessary. Her pain & hypersensitivity seems to be primarily related to disuse, and she had no stiffness today on exam As best we can tell, she has attended perhaps 7-8 OT hand therapy appointments since I began seeing her. She has no showed multiple appointments and has been discharged due to non-compliance multiple times. She has also no-showed office appointments since her last appointment on 09/19/23. I explained to her that it took us more than 15 minutes to get her through about 7 episodes of making a fist and extending her digits at last visit in clinic. I recommended that she practice these exercises for a few minutes every hour, so that her time with the occupational therapist can be better spent. Today her range of motion is improved in all areas. I spoke with her Occupational therapist, Filomena, concerning the patient and her compliance. She says that the patient has repeatedly no-showed appointments and has been discharged from therapy 4 times due to non-compliance. She says when the patient does show up that she has not been actively participating in her care or sessions, as would be expected of her. She says that she still can not work because she can not lift 50 lb and her work requires her to lift 50 lb. I did explain that if she can not lift 50 lb and the job requires her to lift 50 lb, then she might need to find a different kind of work. It has been more than 9 months since she reported a work-related injury in March of 2023 when a patient reportedly rolled onto her hand. Again I 1st saw her in August of 2023, and saw her again in September of 2023. It was evident that her participation in the exam was significantly affected by her lack of effort rather than underlying pathology. With her repeated no-shows of appointments at our hand surgery office and also with repeated no shows at her occupational therapy appointments, even after new consults were placed to allow her to try again, I made the point of noting that we in our office were not keeping her from working and placed no restrictions on her ability to work. As for quite a while she was reportedly still collecting workmen's compensation benefits, but not participating in her care and not showing up for appointments, her behavior was most consistent with malingering. I did talk with her about this during this visit and explained that I believe that she was not being truthful about her abilities and with her participation in her examinations in our office. At this time there is no medical reason I can see to keep her out of work and she was given a note saying she can return to work, without restrictions and full ability to participate in all activities. I did offer two choices for her. She could either seek a 2nd opinion from another hand surgeon and we would be happy to forward her records to that provider, or she could try another 4-6 weeks if needed of hand therapy to strengthen her hand and do whatever she thought she might need to do to make her feel more optimistic about returning to the work force. I did explain clearly that we did not place any restrictions on her with regards to work and were not keeping her out of work, but that she could use the hand therapy to improve her confidence in going back to work if she desired. She said that she wanted to go back to hand therapy. Again we did make a call to the occupational therapists and did understand that even when she had made her appointments this past summer she typically did not participate well with the exercises during her visit. I did place another OT referral for her to attend 2x weekly for the next 6 weeks, at the discretion of the hand therapists. She does not need a follow up appointment with us, and may follow up prn Please note that greater than 50 minutes was spent with this patient going over the history, evaluating the patient and radiographs, formulating possible treatment options, discussing them with the patient, and documenting the visit. Scribed for Venita Multani MD by Zach Ramirez, medical case worker, on 01/02/24 at 9:15 AM, EST. Coding Level of Care Code Est Pt Level 5 (18190) Diagnoses Right hand pain M79.641 Right wrist pain M25.531 Pain of right thumb M79.644 Hypersensitivity T78.40XA
[2024-01-02 08:41] VITALS: BMI 26.3
== END 2024-01-02 09:32 | disposition home or self-care (01) ==
PROVIDERS: PCP Pediatrics; Visit Provider Orthopaedic Surgery
DX: M79.641 Pain in right hand (principal); M25.531 Pain in right wrist; M79.644 Pain in right finger(s); T78.40XA Allergy, unspecified, initial encounter
CPT/HCPCS: 99215

== ENCOUNTER → 2024-01-02 08:40 | Outpatient (BNVA) | payer OTHER, MEDICAID, SELFPAY | PROVIDERS: PCP Pediatrics; Visit Provider Orthopaedic Surgery | DX: M79.641 Pain in right hand (principal); M25.531 Pain in right wrist; M79.644 Pain in right finger(s); T78.40XA Allergy, unspecified, initial encounter | CPT/HCPCS: 99212 ==

== ENCOUNTER 2024-01-07 10:00 | Outpatient (RCR) | payer OTHER, MEDICAID, SELFPAY ==
--- NOTE | 2023-12-03 10:02 | MHC.OT.EP ---
[address] [phone] Occupational Therapy Plan of Care Patient Name: Zaina Jensen Date of Evaluation: 11/30/23 Diagnosis: R wrist pain Pain Location: R Wrist radial side Pain Score: 8 Pain Scale Used: Numeric (0 - 10) Aggravating Factors: Any ROM Alleviating Factors: Bracing; helps it Assessment: Pt required SIGNIFICANT encouragement to perform AROM of her R wrist today; she reported an increase in pain w/ removal of her brace, we discussed the importance pf performing AROM of her R UE, wrist , and hand. She was also educated on avoiding guarding. This is the 3rd trial of OT Therapy w/ pt, and she has been non compliant due to pain Frequency and Duration: The patient will be seen 2xs a week 6 weeks Short Term Goals: Pt will be compliant w/ attending therapy Pt will be complaint w/ her HEP Pt will gain 10 of wrist ext (to 20) Guidance Adviser Goals: Pt will report using her R hand to hold a coffee cup Pt will report 4/10 pain Pt will have 50 of wrist flexion Treatment Plan: Therapeutic Exercise Therapeutic Activity Home Exercise Program Splinting Neuro Re-ed Patient Education Desensitization/Sensory Re-ed Edema Control ADL Training Ultrasound NMES Iontophoresis Paraffin Fluidotherapy MHP Cold Packs Joint Mobilization Soft Tissue Mobilization Kinesiotaping Other (see comments) Electronically Signed By: Samantha Pimentel OTR/L Please Sign and return to therapist. Thank you once again for your referral.
== END 2024-02-14 11:54 | disposition home or self-care (01) ==
LOC: HO.OT 10:00
PROVIDERS: PCP Pediatrics
DX: M25.531 Pain in right wrist (principal); M77.8 Other enthesopathies, not elsewhere classified
CPT/HCPCS: 97035; 97110; 97140; 97166